=== PATIENT | male | born 1940 | race Caucasian/White ===

== ENCOUNTER 2019-04-29 13:24 | Outpatient (CLI) | payer MEDICARE | END 2019-04-29 13:25 | disposition home or self-care (01) | LOC: COV 13:24 | PROVIDERS: ATTEND Family Medicine | DX: R05 Cough (principal); R50.9 Fever, unspecified | CPT/HCPCS: 81599 ==

== ENCOUNTER 2020-10-11 10:05 | Outpatient (CLI) | payer MEDICARE, OTHER | END 2020-10-11 10:06 | disposition short-term general hospital (02) | LOC: EMS 10:05 | DX: M54.9 Dorsalgia, unspecified (principal) | CPT/HCPCS: A0425; A0427 ==

== ENCOUNTER 2023-10-12 09:57 | Outpatient (CLI) | payer MEDICARE, OTHER ==
[2023-10-12 10:20] LABS: CREATININE 1.2 mg/dL (0.6-1.3)
== END 2023-10-12 09:58 | disposition home or self-care (01) ==
LOC: LAB 09:57
PROVIDERS: ATTEND Nurse Anesthetist, Certified Registered
DX: I71.019 Dissection of thoracic aorta, unspecified (principal)
CPT/HCPCS: 36415; 82565

== ENCOUNTER 2023-10-12 09:58 | Outpatient (CLI) | payer MEDICARE, OTHER ==
[2023-10-12] MEDS ORDERED: iohexoL-300 100 ML VIAL ONE (09:59)
[2023-10-12] MEDS: iohexoL-300 100 ML VIAL IVP ONE (11:47)
--- NOTE | 2023-10-13 16:18 | CT Report ---
PROCEDURE: Angio Chest INDICATIONS: DISSECTION OF THORACIC AORTA CONTRAST: Omni 300 100ml TECHNIQUE: After the administration of intravenous contrast, 2 mm axial images were acquired from the pulmonary apices to the posterior costophrenic angles during the arterial phase. In addition, 1 mm lung kernel and 5 mm soft tissue kernel reconstructions were performed. 3-dimensional coronal oblique maximum int ensity projection (MIP) reformats, 8 mm axial MIP, and 5 mm coronal and sagittal MPR reformats were t hen performed through the thorax. For radiation dose reduction, the following was used: automated exp osure control, adjustment of mA and/or kV according to patient size. COMPARISON: CTA chest on May 06, 2022.. FINDINGS: Image quality: Excellent. Large vessels: Status post thoracic aortic endograft which patent. No dissection. Ascending thoracic aorta is stable in size at the level of the main pulmonary artery measuring 4.4 x 4.4 cm (63), prev iously 4.4 x 4.3 cm () on CT dated May 06, 2022. Descending thoracic aorta at the level of the diaphragmatic hiatus measures 3.4 x 3.1 cm (103), stable. Postsurgical changes of the left subclavi an artery, stable. Right brachiocephalic and left common carotid vessels are patent with no significa nt stenosis. No filling defects in the central pulmonary vasculature. Lungs and pleura: No consolidation. No pleural effusions. No pneumothorax. No suspicious pulmonary n odule or consolidation. Dependent atelectasis. Mediastinum: Heart size is normal. No pericardial effusion. No large vessel abnormality. No mediastin al adenopathy by size criteria. Moderate to marked three-vessel coronary calcification, stable. Chest wall and lower neck: Thyroid is unremarkable. No axillary or supraclavicular adenopathy by size . Bones: No aggressive osseous abnormality. Moderate to marked multilevel degenerative changes of the s pine. 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 Upper Abdomen: Please see same day CTA abdomen and pelvis. 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 Thoracic aorta is stable in size compared to CTA dated May 06, 2022. 2.Moderate to marked three-vessel coronary calcification. Reviewed by: Michelle Aguilar MD on 10/13/2023 3:17 PM PAWAN Approved by: Michelle Aguilar MD on 10/13/2023 3:17 PM PAWAN Station ID: [id number]
--- NOTE | 2023-10-13 17:31 | CT Report ---
PROCEDURE: Angio Abdomen/Pelvis INDICATIONS: DISSECTION OF THORACIC AORTA CONTRAST: 100 mL Omnipaque 300 TECHNIQUE: After the administration of intravenous contrast, 2.5 mm thick sections acquired from the diaphragm t o the symphysis. 10 mm maximum-intensity projection (MIP) reformats were then acquired. For radiati on dose reduction, the following was used: automated exposure control, adjustment of mA and/or kV ac cording to patient size. COMPARISON: CTA chest, abdomen and pelvis on May 06, 2022 and October 11, 2020 FINDINGS: Image quality: Excellent. VESSELS: Aorta: Moderate to marked calcification of the abdominal aorta. Infrarenal abdominal ectasia is stab le in size measuring 2.9 x 2.5 cm (), previously 2.8 x 2.5 cm () on CT dated May 06, 2022. Mesenteric arteries: Celiac trunk, superior and inferior mesenteric arteries appear patent. Right pelvic arteries: Iliac vasculature is patent with mild to moderate scattered atherosclerotic d isease. Right common iliac artery measures 1.6 cm (). Left pelvic arteries: Iliac vasculature is patent with mild to moderate scattered atherosclerotic di sease. Right common iliac artery measures 1.5 cm (). CHEST: Lung bases and heart: Please see same day CTA chest. ABDOMEN: Arterial phase imaging limits evaluation of the visceral organs. Liver: No arterially enhancing solid mass. Gallbladder and biliary tree: Cholelithiasis without acute cholecystitis. Spleen: No splenomegaly. Pancreas: No pancreatic ductal dilation. 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 Left renal anechoic simple cyst. No renal cystic lesion which requires follow up. No solid mass. Area of cortical thinning in the right lower pole, likely sequela of remote infection and/or inflammation (58) Bowel and peritoneum: No bowel distension. No pathologic free fluid. Normal appendix (). Extensiv e diverticulosis, without diverticulitis. Lymph nodes: No central or retroperitoneal adenopathy. PELVIS: Streak artifact from the right hip prosthesis mildly limits evaluation of the prostate. Reproductive organs: Mild prostatomegaly. Bladder: No abnormal wall thickening, accounting for underdistension. Bilateral diverticuli (5/120). Pelvic lymph nodes: No pelvic adenopathy by size criteria. Bones: No aggressive osseous abnormality. Other: Tiny fat-containing umbilical hernia. Small bilateral fat-containing inguinal hernias. IMPRESSION: 1.Stable infrarenal abdominal aortic ectasia measuring 2.9 x 2.5 cm, previously 2.8 x 2[address] da molly May 06, 2022. 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 Given the three-year stability, this is favored to be benign. Attention on follow-up imaging. 3.Colonic diverticulosis, without diverticulitis. 4.Cholelithiasis without acute cholecystitis. 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 Reviewed by: Michelle Aguilar MD on 10/13/2023 4:30 PM PAWAN Approved by: Michelle Aguilar MD on 10/13/2023 4:30 PM PAWAN Station ID: [id number]
== END 2023-10-12 09:59 | disposition home or self-care (01) ==
LOC: DI 09:58
PROVIDERS: ATTEND Surgery Vascular Surgery
DX: I71.019 Dissection of thoracic aorta, unspecified (principal); I77.811 Abdominal aortic ectasia; E27.8 Other specified disorders of adrenal gland; K57.30 Diverticulosis of large intestine without perforation or abscess without bleeding; K80.20 Calculus of gallbladder without cholecystitis without obstruction; N32.3 Diverticulum of bladder; I25.10 Atherosclerotic heart disease of native coronary artery without angina pectoris; I51.7 Cardiomegaly; Z95.828 Presence of other vascular implants and grafts
CPT/HCPCS: 36415; 71275; 74174; 82565; Q9967